=== PATIENT | female | born 1935 | race Caucasian/White ===

== ENCOUNTER 2017-07-20 04:52 | Inpatient (IN) | payer MEDICARE ==
[~2017-07-20] VITALS: Ht 165.1 cm; Wt 78.7 kg
[2017-07-20] VITALS (432 sets, daily range): BP systolic 105–143; BP diastolic 46–99; PULSE 84–94; TEMP 98.1–99; O2SAT 81–100
[2017-07-20 05:05] LABS: ARTERIAL BLD GAS O2 SATURATION 98.2 % (92-100); ARTERIAL BLD GAS TCO2 CT 25.1; ARTERIAL BLOOD GAS BASE EXCESS -2.1 (-2-2); ARTERIAL BLOOD GAS HCO3 23.7 meq/L (22-26); ARTERIAL BLOOD GAS PHT 7.34 C (7.35-7.45); ARTERIAL BLOOD GAS pH 7.34 (7.35-7.45); OXYHEMOGLOBIN 97.6 %
[2017-07-20 05:06] LABS: ALLEN TEST YES; ALLENS TEST RESULT PASS; ATS? YES
[2017-07-20] MEDS ORDERED: LEVEMIR FLEX100 U/ML SQ (05:19)
[2017-07-20 05:28] LABS: BASO % 0.8 % (0.0-2.0); EOS # 0.1 (0.0-0.7); EOS % 1.7 % (0-4.0); GRAN # 3.3 (1.4-6.5); GRAN % 69.5 % (42.2-75.2); HEMATOCRIT 40.7 % (37.0-47.0); HEMOGLOBIN 12.8 g/dl (12.5-16.0); LYMPH % 21.2 % (20.0-51.0); MEAN CELL VOLUME 96 fl (80.0-100.0); MEAN CORPUSCULAR HEMOGLOBIN 30 pg (27.0-31.0); MEAN CORPUSCULAR HGB CONC 31 g/dl (33.0-37.0); MEAN PLATELET VOLUME 11.6 fl (7.4-10.4); MONO # 0.3 (0.1-0.6); MONO % 6.4 % (1.7-9.3); PLATELET COUNT 230 K/mm3 (130-400); RED BLOOD COUNT 4.26 M/mm3 (4.10-5.30); WHITE BLOOD COUNT 4.7 K/mm3 (4.8-10.8)
[2017-07-20 05:46] LABS: COLLECTION METHOD CATHETER
[2017-07-20 05:51] LABS: PH 6 (5-8); SQUAMOUS EPITHELIAL None Seen /hpf; URINE APPEARANCE Clear; URINE BACTERIA None Seen /hpf; URINE BILIRUBIN Negative (NEGATIVE); URINE BLOOD Negative (NEGATIVE); URINE COLOR Yellow; URINE GLUCOSE 3+ (NEGATIVE); URINE KETONE Trace (NEGATIVE); URINE LEUKOCYTE ESTERASE Negative (NEGATIVE); URINE PROTEIN(semi-quant) Negative (NEGATIVE); URINE RBC 0-2 /hpf; URINE WBC 0-2 /hpf
[2017-07-20 05:51] LABS: ADJUSTED CALCIUM 9.6 mg/dL (8.4-10.2); ALBUMIN 3.8 gm/dL (3.5-5.0); BILIRUBIN,TOTAL 0.8 mg/dL (0.0-1.0); CALCIUM 9.4 mg/dL (8.4-10.2); CREATININE, serum 0.81 mg/dL (0.52-1.25); MAGNESIUM 1.7 mg/dL (1.6-2.3); PHOSPHOROUS 6.4 mg/dL (2.5-4.5); POTASSIUM 4.5 mmol/L (3.4-5.0)
[2017-07-20 06:01] LABS: TROPONIN-I 0.04 ng/mL (0.000-0.034)
[2017-07-20] MEDS ORDERED: SYNTHROID0.075 MG/T PO (07:41)
[2017-07-20] MEDS ORDERED: SMZ/TMPDS PO (07:43)
[2017-07-20] MEDS ORDERED: CYMBALTA 60MG60 MG PO (07:44)
[2017-07-20] MEDS ORDERED: HUMALOG PEN100 U/ML SQ (07:44)
[2017-07-20] MEDS ORDERED: PROTONIX 40MG T40 MG PO (07:44)
[2017-07-20] MEDS ORDERED: ZOCOR 40MG40 MG PO (07:45)
[2017-07-20] MEDS ORDERED: GLUCOPHAGE850 MG/TAB PO (07:45)
[2017-07-20] MEDS ORDERED: ATIVAN 0.50.5 MG/TAB PO (07:45)
[2017-07-20] MEDS ORDERED: COZAAR100 MG PO (07:46)
[2017-07-21] VITALS (367 sets, daily range): BP systolic 90–131; BP diastolic 54–84; PULSE 74–87; TEMP 97.4–98.6; O2SAT 83–100
[2017-07-21 07:52] LABS: CHOLESTEROL RISK RATIO 2.4
[2017-07-21 08:10] LABS: TROPONIN-I 1.05 ng/mL (0.000-0.034)
[2017-07-21 12:17] LABS: HEMATOCRIT 38.7 % (37.0-47.0); HEMOGLOBIN 12.8 g/dl (12.5-16.0); MEAN CELL VOLUME 92 fl (80.0-100.0); MEAN CORPUSCULAR HEMOGLOBIN 30 pg (27.0-31.0); MEAN CORPUSCULAR HGB CONC 33 g/dl (33.0-37.0); MEAN PLATELET VOLUME 11.7 fl (7.4-10.4); PLATELET COUNT 224 K/mm3 (130-400); RED BLOOD COUNT 4.21 M/mm3 (4.10-5.30); WHITE BLOOD COUNT 4.6 K/mm3 (4.8-10.8)
[2017-07-21 12:23] LABS: INR 1.2 (0.8-3.0); PROTHROMBIN TIME 13.9 SECONDS (9.7-12.8)
[2017-07-21 12:26] LABS: PARTIAL THROMBOPLASTIN TIME 35.8 SECONDS (26.0-37.0)
[2017-07-21 12:29] LABS: CALCIUM 9.5 mg/dL (8.4-10.2); CREATININE, serum 0.7 mg/dL (0.52-1.25); MAGNESIUM 1.7 mg/dL (1.6-2.3); PHOSPHOROUS 3.6 mg/dL (2.5-4.5); POTASSIUM 3.7 mmol/L (3.4-5.0)
[2017-07-22] VITALS (493 sets, daily range): BP systolic 105–127; BP diastolic 50–76; PULSE 80–85; TEMP 97.4–98.2; O2SAT 83–100
[2017-07-22 04:54] LABS: BASO % 0.7 % (0.0-2.0); EOS # 0.1 (0.0-0.7); EOS % 2.7 % (0-4.0); GRAN # 3.1 (1.4-6.5); GRAN % 69.9 % (42.2-75.2); LYMPH # 0.8 (1.2-3.4); LYMPH % 17.8 % (20.0-51.0); MEAN CELL VOLUME 92 fl (80.0-100.0); MEAN CORPUSCULAR HGB CONC 33 g/dl (33.0-37.0); MEAN PLATELET VOLUME 11.5 fl (7.4-10.4); MONO # 0.4 (0.1-0.6); MONO % 8.7 % (1.7-9.3); PLATELET COUNT 189 K/mm3 (130-400); RED BLOOD COUNT 3.77 M/mm3 (4.10-5.30); WHITE BLOOD COUNT 4.4 K/mm3 (4.8-10.8)
[2017-07-22 05:02] LABS: HEMATOCRIT 34.6 % (37.0-47.0); HEMOGLOBIN 11.5 g/dl (12.5-16.0); MEAN CORPUSCULAR HEMOGLOBIN 31 pg (27.0-31.0)
[2017-07-22 05:05] LABS: CALCIUM 8.9 mg/dL (8.4-10.2); CREATININE, serum 0.65 mg/dL (0.52-1.25); POTASSIUM 3.5 mmol/L (3.4-5.0)
[2017-07-23 03:59] VITALS: BP 136/61; PULSE 80; TEMP 97.2
[2017-07-23 07:36] VITALS: BP 115/62; PULSE 99; TEMP 97.9
[2017-07-23 11:34] VITALS: BP 102/44; PULSE 75; TEMP 97.2
[2017-07-23] MEDS ORDERED: LIPITOR20 MG PO (11:52)
[2017-07-23] MEDS ORDERED: COREG 3.123.125 MG/T PO (11:52)
[2017-07-23] MEDS ORDERED: PLAVIX 75MG TAB75 MG PO (11:52)
[2017-07-23] MEDS ORDERED: ASPIRIN E.C. 8181 MG PO (11:52)
== END 2017-07-23 15:30 | disposition home or self-care (01) | DRG 246 ==
LOC: COL.ER 04:52 → EDBD 04:52 → ICU 07:29 → MEDICAL 07:29 → ICU 07-21 16:28 → MEDICAL 07-22 19:50
PROVIDERS: Emergency Medicine; Internal Medicine; Internal Medicine Interventional Cardiology; Physician Assistant
PROC: 0270346 Dilation of Coronary Artery, One Artery, Bifurcation, with Drug-eluting Intraluminal Device, Percutaneous Approach (ICD-10-PCS; principal; 2017-07-21)
PROC: 4A023N7 Measurement of Cardiac Sampling and Pressure, Left Heart, Percutaneous Approach (ICD-10-PCS; 2017-07-21)
PROC: B2111ZZ Fluoroscopy of Multiple Coronary Arteries using Low Osmolar Contrast (ICD-10-PCS; 2017-07-21)
DX: I21.4 Non-ST elevation (NSTEMI) myocardial infarction (principal); J81.0 Acute pulmonary edema; T82.855A Stenosis of coronary artery stent, initial encounter; E11.9 Type 2 diabetes mellitus without complications; E78.5 Hyperlipidemia, unspecified; I16.0 Hypertensive urgency; E83.39 Other disorders of phosphorus metabolism; I25.10 Atherosclerotic heart disease of native coronary artery without angina pectoris; E03.9 Hypothyroidism, unspecified; Z79.4 Long term (current) use of insulin; Z95.5 Presence of coronary angioplasty implant and graft
CPT/HCPCS: 99223-AI; 99233-AI; 99239; C1725; C1760; C1769; C1874; C1887; C1894; C9600; J0583; J0696; J1650; J1815; J1940; J2250; J3010; J7050; Q9967